=== PATIENT | female | born 1955 | race Caucasian/White ===

== ENCOUNTER 2024-08-05 07:46 | Day surgery (SDC) | payer OTHER, MEDICARE ==
[2024-07-31 12:42] VITALS: BMI 23.1
[2024-08-05] MEDS ORDERED: VANCOMYCIN 1,000 MG VIAL (RESTRICTED TO ID ONLY) ONE ×2 (08:02→09:49)
[2024-08-05] MEDS ORDERED: MIDAZOLAM HCL 2 MG/2 ML SINGLE DOSE VIAL ONE ×3 (08:06→10:54)
[2024-08-05] MEDS ORDERED: PROPOFOL 20 ML ONE ×3 (08:06→11:12)
[2024-08-05] MEDS ORDERED: BUPIVACAINE HCL/PF 0.5% (5 MG/ML) 30 ML VIAL IJ ONE (08:11)
[2024-08-05] MEDS ORDERED: ACETAMINOPHEN INJECTION 100 ML ONE (08:11)
[2024-08-05] MEDS ORDERED: BUPIVACAINE HCL/PF 0.5% (5MG/ML) 10 ML VIAL ONE (08:11)
[2024-08-05] MEDS ORDERED: DEXAMETHASONE SOD PHOSPHATE 10 MG/1 ML VIAL ONE (08:11)
[2024-08-05] MEDS ORDERED: ONDANSETRON 4 MG/2 ML VIAL IVPUSH PRN ×2 (08:15→11:19)
[2024-08-05] MEDS ORDERED: LACTATED RINGERS SOLUTION 1,000 ML IV SCH (08:15)
[2024-08-05] MEDS ORDERED: oxyCODONE HCL 5 MG TABLET PO PRN (08:15)
[2024-08-05] MEDS ORDERED: ceFAZolin SODIUM 1 GM VIAL ONE (09:49)
[2024-08-05] MEDS ORDERED: TRANEXAMIC ACID 1000 MG/10 ML VIAL ONE ×2 (09:49→10:10)
[2024-08-05] MEDS ORDERED: ONDANSETRON 4 MG/2 ML VIAL ONE (10:01)
[2024-08-05] MEDS ORDERED: DEXAMETHASONE SOD PHOSPHATE 4 MG/1 ML VIAL ONE (10:01)
[2024-08-05] MEDS ORDERED: BUPIVICAINE 0.25%/MORPH PF/KETOROLAC - 51ML DISP.SYRINGE IA ONE (10:56)
[2024-08-05] MEDS ORDERED: MAG HYDROX/AL HYDROX/SIMETH 30 ML UNIT-DOSE CUP PO PRN (11:19)
[2024-08-05] MEDS: LACTATED RINGERS SOLUTION 1,000 ML IV SCH (13:45)
[2024-08-05] MEDS: CEFAZOLIN 2 GM/D5W 2 GM/50 ML ML IVPB SCH (18:10)
[2024-08-05] MEDS: ACETAMINOPHEN 1000 MG/100 ML BAG IVPB PRN (18:11)
[2024-08-05] MEDS: oxyCODONE HCL 5 MG TABLET PO PRN (19:47)
[2024-08-05] MEDS: GABAPENTIN 300 MG CAPSULE PO SCH (21:57)
[2024-08-05] MEDS: SENNOSIDES/DOCUSATE COMBO (SENNA PLUS) TABLET (UD) PO SCH (21:57)
[2024-08-06 09:31] LABS: HEMATOCRIT 31.5 % (32.4-45.2); HEMOGLOBIN 10.5 G/dL (10.7-15.3); MCH 28.7 pg (25.7-33.7); MCHC 33.3 g/dl (32.0-36.0); MEAN PLT VOLUME 8.5 fl (7.5-11.1); PLATELET COUNT 421.4 10^3/uL (134-434); RBC 3.66 10^6/uL (3.60-5.2); RDW 13.9 % (11.6-15.6); WHITE BLOOD COUNT 10.3 10^3/uL (4.0-10.8)
[2024-08-06 09:49] LABS: CALCIUM 8.8 mg/dl (8.5-10.1); CREATININE 1.6 mg/dl (0.6-1.3); POTASSIUM 4.7 mmol/L (3.5-5.1)
[2024-08-06] MEDS: MULTIVITAMINS (DAILY MVI) TABLET (FP) PO SCH (10:35)
[2024-08-06] MEDS: ASPIRIN COATED 81 MG TABLET.EC PO SCH (10:35)
[2024-08-06] MEDS: PANTOPRAZOLE 40 MG TABLET PO SCH (10:35)
[2024-08-06] MEDS: FAMOTIDINE 20 MG TABLET PO SCH (11:15)
[2024-08-06] MEDS: SODIUM CHLORIDE 0.9% 250 ML INFUS.BAG IV ONE (11:19)
[2024-08-06 16:04] VITALS: BP 114/62; PULSE 81; RESP 19; TEMP 97.3
== END 2024-08-06 16:56 | disposition home or self-care (01) ==
LOC: SUATTDRO 07:46 → FASUSAT 07:46 → FM/S 13:15 → FASUSAT 08-06 16:56
PROC: 8E0Y0CZ Robotic Assisted Procedure of Lower Extremity, Open Approach (ICD-10-PCS; 2024-08-05)
PROC: 0SRD0JA Replacement of Left Knee Joint with Synthetic Substitute, Uncemented, Open Approach (ICD-10-PCS; principal; 2024-08-05 10:12)
DX: M17.12 Unilateral primary osteoarthritis, left knee (principal)
CPT/HCPCS: 20985; 27447; C1776; S2900; 36415; 73560-TC-LT-FY; 80048; 85027; 88305-TC; 88311-TC; 94760; 97010-GP; 97116-GP; 97162-GP; J0131; J1100

== ENCOUNTER 2024-08-08 17:14 | Inpatient (IN) | payer OTHER, MEDICARE ==
[2024-08-08 19:07] LABS: BASO % 0.6 % (0-2.0); EOS % 3.5 % (0-4.5); HEMATOCRIT 30.6 % (32.4-45.2); HEMOGLOBIN 10.1 GM/dL (10.7-15.3); MCH 27.7 pg (25.7-33.7); MCHC 33.1 g/dl (32.0-36.0); MEAN CELL VOLUME 83.5 fl (80-96); MEAN PLT VOLUME 7.8 fl (7.5-11.1); MONO % 7.1 % (3.8-10.2); NEUT % 77.8 % (42.8-82.8); PLATELET COUNT 400 10^3/uL (134-434); RBC 3.67 M/mm3 (3.60-5.2); RDW 13.9 % (11.6-15.6); WHITE BLOOD COUNT 14.5 K/mm3 (4.0-10.0)
[2024-08-08 19:48] LABS: POTASSIUM 3.9 mmol/L (3.5-5.1)
[2024-08-08 19:50] LABS: ALBUMIN 2.7 g/dl (3.4-5.0); BLOOD UREA NITROGEN 22.4 mg/dL (7-18); CALCIUM 9.1 mg/dL (8.5-10.1)
[2024-08-08 19:54] LABS: CREATININE 1.2 mg/dL (0.55-1.3)
[2024-08-08 19:55] LABS: BILIRUBIN,TOTAL 0.7 mg/dL (0.2-1); TOT PROT 6.8 g/dl (6.4-8.2)
[2024-08-08] MEDS ORDERED: oxyCODONE HCL 5 MG TABLET PO PRN (22:15)
[2024-08-09] MEDS: oxyCODONE HCL 5 MG TABLET PO PRN (00:53)
[2024-08-09 05:40] VITALS: BMI 23.8
[2024-08-09] MEDS ORDERED: oxyCODONE HCL 5 MG TABLET PO PRN (09:16)
[2024-08-09] MEDS: ACETAMINOPHEN 325 MG TABLET (FP) PO PRN (09:33)
[2024-08-09] MEDS: GABAPENTIN 300 MG CAPSULE PO SCH (09:33)
[2024-08-09] MEDS: FAMOTIDINE 20 MG TABLET PO SCH (09:33)
[2024-08-09] MEDS: ASPIRIN COATED 81 MG TABLET.EC PO SCH (09:33)
[2024-08-09 10:21] LABS: BASO % 0.5 % (0-2.0); EOS % 5.3 % (0-4.5); HEMATOCRIT 29.5 % (32.4-45.2); HEMOGLOBIN 9.9 GM/dL (10.7-15.3); LYMPH % 14.7 % (8-40); MCH 28.3 pg (25.7-33.7); MCHC 33.6 g/dl (32.0-36.0); MEAN CELL VOLUME 84.2 fl (80-96); MEAN PLT VOLUME 7.9 fl (7.5-11.1); MONO % 7.7 % (3.8-10.2); NEUT % 71.8 % (42.8-82.8); PLATELET COUNT 406 10^3/uL (134-434); RDW 13.8 % (11.6-15.6); WHITE BLOOD COUNT 10.9 K/mm3 (4.0-10.0)
[2024-08-09 10:36] LABS: POTASSIUM 3.8 mmol/L (3.5-5.1)
[2024-08-09 10:37] LABS: CALCIUM 8.5 mg/dL (8.5-10.1)
[2024-08-09 10:38] LABS: ALBUMIN 2.3 g/dl (3.4-5.0); BLOOD UREA NITROGEN 20.1 mg/dL (7-18); MAGNESIUM 1.6 mg/dL (1.8-2.4)
[2024-08-09 10:40] LABS: CREATININE 1.1 mg/dL (0.55-1.3); PHOSPHOROUS 3.6 mg/dL (2.5-4.9)
[2024-08-09 10:41] LABS: BILIRUBIN,TOTAL 0.7 mg/dL (0.2-1)
[2024-08-09] MEDS: MAGNESIUM OXIDE 400 MG TABLET (FP) PO ONE (12:03)
[2024-08-09] MEDS: DOCUSATE SODIUM 100 MG CAPSULE (FP) PO SCH (12:03)
[2024-08-09] MEDS: SODIUM CHLORIDE 1,000 ML IV SCH (12:03)
[2024-08-09] MEDS: MAGNESIUM SULF 50% (8.12 MEQ/2 ML-1 GM VIAL) IVPB ONE (12:08)
[2024-08-09 17:35] LABS: EPI CELLS 9 /uL (0-25.1); HYALINE CASTS 0 /uL (0-3.1); PH,URINE 5.5 (5.0-8.0); URINE APPEARANCE CLEAR; URINE BACTERIA 6 /uL (0-1359); URINE BILIRUBIN NEGATIVE (NEGATIVE); URINE COLOR YELLOW; URINE GLUCOSE (UA) NEGATIVE (NEGATIVE); URINE KETONE NEGATIVE (NEGATIVE); URINE LEUK ESTERASE TRACE (NEGATIVE); URINE NITRITE NEGATIVE (NEGATIVE); URINE PROTEIN 2+ (NEGATIVE); URINE RBC 26 /uL (0-23.9); URINE UROBILINOGEN 0.2 mg/dL (0.2-1.0); URINE WBC 103 /uL (0-25.8)
[2024-08-10 08:46] LABS: BASO % 0.7 % (0-2.0); EOS % 6.8 % (0-4.5); HEMOGLOBIN 9.7 GM/dL (10.7-15.3); LYMPH % 13.6 % (8-40); MCH 29.1 pg (25.7-33.7); MCHC 34.7 g/dl (32.0-36.0); MEAN CELL VOLUME 83.8 fl (80-96); MEAN PLT VOLUME 7.7 fl (7.5-11.1); MONO % 10.6 % (3.8-10.2); NEUT % 68.3 % (42.8-82.8); PLATELET COUNT 386 10^3/uL (134-434); RBC 3.34 M/mm3 (3.60-5.2); RDW 13.6 % (11.6-15.6); WHITE BLOOD COUNT 8.9 K/mm3 (4.0-10.0)
[2024-08-10 09:08] LABS: POTASSIUM 4.2 mmol/L (3.5-5.1)
[2024-08-10 09:22] LABS: CALCIUM 8.6 mg/dL (8.5-10.1)
[2024-08-10 09:23] LABS: ALBUMIN 2.2 g/dl (3.4-5.0); BLOOD UREA NITROGEN 22.5 mg/dL (7-18)
[2024-08-10 09:27] LABS: BILIRUBIN,TOTAL 0.9 mg/dL (0.2-1); CREATININE 1.1 mg/dL (0.55-1.3)
[2024-08-10] MEDS: POLYETHYLENE GLYCOL (HEALTHYLAX) 3350 17 GM PACKET PO ONE (14:24)
[2024-08-10 23:23] VITALS: RESP 18
[2024-08-12 09:20] VITALS: BP 106/73; PULSE 88; TEMP 98.2
== END 2024-08-12 11:40 | DRG 948 ==
LOC: JER 17:14 → JERBED 20:32 → J7W 08-09 00:32 → OBSVTOIN 08-09 15:07
PROVIDERS: ADMIT Internal Medicine
DX: G89.18 Other acute postprocedural pain (principal); Y83.9 Surgical procedure, unspecified as the cause of abnormal reaction of the patient, or of later complication, without mention of misadventure at the time of the procedure; D72.829 Elevated white blood cell count, unspecified; I95.9 Hypotension, unspecified; R60.0 Localized edema
CPT/HCPCS: 36415; 80053; 81003; 83540; 83550; 83735; 84100; 85025; 87086; 93005; 93010; 94010; 97116-GP; 97162-GP; 99285-25; G0378

== ENCOUNTER 2024-10-14 05:24 | Emergency (ER) | payer OTHER, MEDICARE ==
[2024-10-14 05:36] VITALS: BP 133/66; RESP 20; TEMP 97.9; BMI 23.5
[2024-10-14] MEDS ORDERED: MORPHINE SULFATE 2 MG/ML SYRINGE ONE (08:39)
[2024-10-14] MEDS: morphine CARPU-JECT 2 MG/1 ML DISP.SYRIN IVPUSH ONE (09:35)
[2024-10-14 10:01] LABS: INR 1.03 (0.83-1.09); PROTHROMBIN TIME (PATIENT) 11.2 SEC (9.7-13.0)
[2024-10-14 10:04] LABS: ACTIVATED PTT 23.7 SECONDS (25.2-36.5)
[2024-10-14 10:05] LABS: BASO % 0.8 % (0-2.0); EOS % 3.9 % (0-4.5); HEMATOCRIT 32.4 % (32.4-45.2); HEMOGLOBIN 10.2 GM/dL (10.7-15.3); LYMPH % 20.3 % (8-40); MCH 26.1 pg (25.7-33.7); MCHC 31.6 g/dl (32.0-36.0); MEAN CELL VOLUME 82.6 fl (80-96); MEAN PLT VOLUME 8.4 fl (7.5-11.1); MONO % 9.4 % (3.8-10.2); NEUT % 65.6 % (42.8-82.8); PLATELET COUNT 329 10^3/uL (134-434); RBC 3.92 M/mm3 (3.60-5.2); RDW 15.3 % (11.6-15.6); WHITE BLOOD COUNT 8.3 K/mm3 (4.0-10.0)
[2024-10-14 10:19] LABS: POTASSIUM 4.7 mmol/L (3.5-5.1)
[2024-10-14 10:22] LABS: ALBUMIN 3.3 g/dl (3.4-5.0); BLOOD UREA NITROGEN 47.7 mg/dL (7-18); CALCIUM 9.1 mg/dL (8.5-10.1)
[2024-10-14 10:26] LABS: CREATININE 1.4 mg/dL (0.55-1.3)
[2024-10-14 10:27] LABS: BILIRUBIN,TOTAL 0.6 mg/dL (0.2-1); TOT PROT 7.5 g/dl (6.4-8.2)
[2024-10-14 11:25] VITALS: PULSE 79
== END 2024-10-14 12:42 | disposition home or self-care (01) ==
LOC: JER 05:24
PROC: 3E033NZ Introduction of Analgesics, Hypnotics, Sedatives into Peripheral Vein, Percutaneous Approach (ICD-10-PCS; principal; 2024-10-14)
DX: R10.32 Left lower quadrant pain (principal); M25.552 Pain in left hip; M79.89 Other specified soft tissue disorders; R60.0 Localized edema; W01.198A Fall on same level from slipping, tripping and stumbling with subsequent striking against other object, initial encounter
CPT/HCPCS: 36415; 72192-TC; 73700-TC-RT; 80053; 80307; 85025; 85610; 85730; 86850; 86900; 86901; 93971-TC; 96374; 99285-25

== ENCOUNTER 2025-03-17 02:25 | Inpatient (IN) | payer OTHER, MEDICARE ==
[2025-03-17 02:43] VITALS: BMI 23.5
[2025-03-17 04:47] LABS: ABSOLUTE IMMATURE GRANULOCYTES 0.03 x10^3/uL (0.0-0.031); BASOPHILS # 0.10 x10^3/uL (0.01-0.08); EOSINOPHIL % 3.8 % (0.7-5.8); EOSINOPHILS # 0.32 x10^3/uL (0.04-0.36); MCHC 29.8 g/dl (32.2-35.5); MEAN CELL VOLUME 78.6 fl (79.4-94.8); MEAN PLT VOLUME 9.6 fl (9.4-12.3); MONOCYTE # 0.76 x10^3/uL (0.24-0.86); MONOCYTE % 8.9 % (4.7-12.5); RDW 15.3 % (12.4-16.4)
[2025-03-17 05:11] LABS: CO2 24.0 mmol/L (21-32); GLUCOSE,RANDOM 99.0 mg/dL (74-106)
[2025-03-17 05:13] LABS: CREATININE 1.7 mg/dL (0.55-1.3); SGOT/AST 21.0 U/L (15-37); SGPT/ALT 23.0 U/L (13-61)
[2025-03-17 05:16] LABS: TOT PROT 8.0 g/dl (6.4-8.2)
[2025-03-17 05:17] LABS: ALK PHOS 132.0 U/L (45-117)
[2025-03-17 05:20] LABS: INR 1.12 (0.83-1.09); PROTHROMBIN TIME (PATIENT) 12.2 SEC (9.7-13.0)
[2025-03-17 05:23] LABS: ACTIVATED PTT 28.7 SECONDS (25.2-36.5)
[2025-03-17] MEDS ORDERED: MORPHINE SULFATE 2 MG/ML SYRINGE ONE ×2 (05:30→06:05)
[2025-03-17] MEDS: SODIUM CHLORIDE 0.9% 500 ML INFUS.BAG IV ONE (05:39)
[2025-03-17 06:03] LABS: HCV DIAGNOSTIC IN-HOUSE W/RFLX NON-REACTIVE (NONREACTIVE)
[2025-03-17] MEDS ORDERED: VANCOMYCIN 1 GRAM (PRE-DOCKED) 1,000 MG/250 ML BAG IVPB ONE (06:06)
[2025-03-17] MEDS: morphine CARPU-JECT 2 MG/1 ML DISP.SYRIN IVPUSH ONE (06:17)
[2025-03-17] MEDS: VANCOMYCIN 1 GM PREMIX (F) 1 GM/200 ML BAG IVPB ONE (06:18)
[2025-03-17 09:09] LABS: ERYTHROCYTE SEDIMENTATION RATE 114 mm/hr (0-30)
[2025-03-17] MEDS: SODIUM CHLORIDE 1,000 ML IV SCH (09:30)
[2025-03-17] MEDS: morphine CARPU-JECT 2 MG/1 ML DISP.SYRIN IVPUSH PRN (11:29)
[2025-03-17] MEDS: HEPARIN NA (PORCINE) 5,000 UNITS/ML 1ML VIAL SQ SCH (14:49)
[2025-03-17] MEDS: COLLAGENASE CLOSTRIDIUM HIST. 30 GRAMS TUBE TP SCH (20:00)
[2025-03-17] MEDS: PIPERACILLIN/TAZOB 3.375 GM 3.375 GM in DEXTROSE 5%-WATER - 50 ML IVPB SCH (21:35)
[2025-03-17] MEDS: ACETAMINOPHEN 325 MG TABLET (FP) PO PRN (21:39)
[2025-03-17] MEDS: VANCOMYCIN/WATER FOR INJ (PEG) 1,000 MG/200 ML BAG IVPB ONE (21:42)
[2025-03-17 22:37] LABS: HIV INTERPRETATION NEGATIVE (NEGATIVE)
[2025-03-18] MEDS ORDERED: VANCOMYCIN 1,000 MG in DEXTROSE 5%-WATER - 250 ML IVPB SCH (06:00)
[2025-03-18 08:35] LABS: ABSOLUTE IMMATURE GRANULOCYTES 0.02 x10^3/uL (0.0-0.031); BASOPHILS # 0.13 x10^3/uL (0.01-0.08); EOSINOPHIL % 8.7 % (0.7-5.8); EOSINOPHILS # 0.74 x10^3/uL (0.04-0.36); MCHC 30.0 g/dl (32.2-35.5); MEAN CELL VOLUME 77.5 fl (79.4-94.8); MEAN PLT VOLUME 9.1 fl (9.4-12.3); MONOCYTE # 0.67 x10^3/uL (0.24-0.86); MONOCYTE % 7.9 % (4.7-12.5); RDW 15.3 % (12.4-16.4)
[2025-03-18 08:58] LABS: GLUCOSE,RANDOM 85.0 mg/dL (74-106)
[2025-03-18 09:01] LABS: CREATININE 1.2 mg/dL (0.55-1.3); SGOT/AST 21.0 U/L (15-37); SGPT/ALT 22.0 U/L (13-61)
[2025-03-18 09:03] LABS: ALK PHOS 129.0 U/L (45-117); TOT PROT 7.3 g/dl (6.4-8.2)
[2025-03-18 09:44] LABS: CO2 20.0 mmol/L (21-32)
[2025-03-18] MEDS ORDERED: VANCOMYCIN/WATER FOR INJ (PEG) 1,000 MG/200 ML BAG IVPB SCH (10:00)
[2025-03-18] MEDS: morphine CARPU-JECT 2 MG/1 ML DISP.SYRIN IVPUSH ONE (10:48)
[2025-03-18] MEDS: MULTIVITAMINS (DAILY MVI) TABLET (FP) PO SCH (11:04)
[2025-03-18] MEDS: LACTOBACILLUS ACIDOPHILUS 1 TABLET PO SCH (11:48)
[2025-03-18] MEDS: AMINO ACIDS/PROTEIN HYDROLYS 30 ML LIQUID.PKT PO SCH (16:46)
[2025-03-18] MEDS: morphine CARPU-JECT 2 MG/1 ML DISP.SYRIN IVPUSH PRN (16:46)
[2025-03-19 17:38] LABS: ABSOLUTE IMMATURE GRANULOCYTES 0.01 x10^3/uL (0.0-0.031); BASOPHILS # 0.09 x10^3/uL (0.01-0.08); EOSINOPHIL % 5.1 % (0.7-5.8); EOSINOPHILS # 0.39 x10^3/uL (0.04-0.36); MCHC 30.3 g/dl (32.2-35.5); MEAN CELL VOLUME 77.3 fl (79.4-94.8); MEAN PLT VOLUME 8.8 fl (9.4-12.3); MONOCYTE # 0.81 x10^3/uL (0.24-0.86); MONOCYTE % 10.6 % (4.7-12.5); RDW 15.4 % (12.4-16.4)
[2025-03-19] MEDS: VANCOMYCIN/WATER FOR INJ (PEG) 1,000 MG/200 ML BAG IVPB ONE (18:23)
[2025-03-19 18:25] LABS: CO2 23.0 mmol/L (21-32); GLUCOSE,RANDOM 103.0 mg/dL (74-106)
[2025-03-19 18:29] LABS: CREATININE 1.3 mg/dL (0.55-1.3); SGOT/AST 14.0 U/L (15-37); SGPT/ALT 19.0 U/L (13-61)
[2025-03-19 18:30] LABS: TOT PROT 7.2 g/dl (6.4-8.2)
[2025-03-19 18:32] LABS: ALK PHOS 131.0 U/L (45-117)
[2025-03-20 08:48] LABS: ABSOLUTE IMMATURE GRANULOCYTES 0.04 x10^3/uL (0.0-0.031); BASOPHILS # 0.13 x10^3/uL (0.01-0.08); EOSINOPHIL % 4.2 % (0.7-5.8); EOSINOPHILS # 0.37 x10^3/uL (0.04-0.36); MCHC 30.1 g/dl (32.2-35.5); MEAN CELL VOLUME 77.4 fl (79.4-94.8); MEAN PLT VOLUME 9.3 fl (9.4-12.3); MONOCYTE # 0.80 x10^3/uL (0.24-0.86); MONOCYTE % 9.1 % (4.7-12.5); RDW 15.4 % (12.4-16.4)
[2025-03-20 09:56] LABS: CO2 21.0 mmol/L (21-32); GLUCOSE,RANDOM 92.0 mg/dL (74-106)
[2025-03-20 09:59] LABS: CREATININE 1.1 mg/dL (0.55-1.3); SGOT/AST 19.0 U/L (15-37); SGPT/ALT 22.0 U/L (13-61)
[2025-03-20 10:00] LABS: TOT PROT 7.6 g/dl (6.4-8.2)
[2025-03-20 10:06] LABS: ALK PHOS 136.0 U/L (45-117)
[2025-03-20] MEDS: MAGNESIUM OXIDE 400 MG TABLET (FP) PO ONE (10:37)
[2025-03-21] MEDS: morphine CARPU-JECT 2 MG/1 ML DISP.SYRIN IVPUSH PRN (01:20)
[2025-03-21 07:29] LABS: ABSOLUTE IMMATURE GRANULOCYTES 0.05 x10^3/uL (0.0-0.031); BASOPHILS # 0.10 x10^3/uL (0.01-0.08); EOSINOPHIL % 3.4 % (0.7-5.8); EOSINOPHILS # 0.36 x10^3/uL (0.04-0.36); MCHC 29.6 g/dl (32.2-35.5); MEAN CELL VOLUME 77.7 fl (79.4-94.8); MEAN PLT VOLUME 9.0 fl (9.4-12.3); MONOCYTE # 0.86 x10^3/uL (0.24-0.86); MONOCYTE % 8.1 % (4.7-12.5); RDW 15.4 % (12.4-16.4)
[2025-03-21 08:22] LABS: CO2 23.0 mmol/L (21-32)
[2025-03-21 08:23] LABS: GLUCOSE,RANDOM 92.0 mg/dL (74-106)
[2025-03-21 08:25] LABS: CREATININE 1.2 mg/dL (0.55-1.3); SGPT/ALT 25.0 U/L (13-61)
[2025-03-21 08:26] LABS: SGOT/AST 21.0 U/L (15-37)
[2025-03-21 08:27] LABS: TOT PROT 8.0 g/dl (6.4-8.2)
[2025-03-21 08:28] LABS: ALK PHOS 147.0 U/L (45-117)
[2025-03-21 11:19] VITALS: BP 102/64; PULSE 83; RESP 17; TEMP 97.9
== END 2025-03-21 15:54 | disposition home or self-care (01) | DRG 603 ==
LOC: JER 02:25 → JERBED 05:52 → J8W 09:08
PROVIDERS: ADMIT Student in an Organized Health Care Education/Training Program; ATTEND Nurse Practitioner Family
DX: L03.116 Cellulitis of left lower limb (principal); L97.929 Non-pressure chronic ulcer of unspecified part of left lower leg with unspecified severity; N17.9 Acute kidney failure, unspecified; K21.9 Gastro-esophageal reflux disease without esophagitis; F32.A Depression, unspecified; I73.9 Peripheral vascular disease, unspecified; L03.115 Cellulitis of right lower limb
CPT/HCPCS: 36415; 73590-TC-LT-FY; 80053; 83036; 83735; 84100; 85025; 85610; 85651; 85730; 86140; 86803; 86850; 86900; 86901; 87070; 87081; 87205; 87389; 93005; 93010; 93926-TC; 99285-25; G0480

== ENCOUNTER 2025-06-14 02:38 | Inpatient (IN) | payer OTHER, MEDICARE ==
[2025-06-14] MEDS ORDERED: ACETAMINOPHEN INJECTION 100 ML ONE (03:08)
[2025-06-14] MEDS: ACETAMINOPHEN 1000 MG/100 ML BAG IVPB ONE (03:26)
[2025-06-14] MEDS ORDERED: CEFEPIME HCL/D5W 1 GM/50 ML BAG IVPB ONE (03:41)
[2025-06-14 03:44] LABS: ABSOLUTE IMMATURE GRANULOCYTES 0.06 x10^3/uL (0.0-0.031); BASOPHILS # 0.10 x10^3/uL (0.01-0.08); EOSINOPHIL % 1.1 % (0.7-5.8); EOSINOPHILS # 0.17 x10^3/uL (0.04-0.36); MCHC 29.9 g/dl (32.2-35.5); MEAN CELL VOLUME 76.6 fl (79.4-94.8); MEAN PLT VOLUME 8.9 fl (9.4-12.3); MONOCYTE # 1.38 x10^3/uL (0.24-0.86); MONOCYTE % 8.7 % (4.7-12.5); RDW 16.7 % (12.4-16.4)
[2025-06-14 03:55] LABS: INR 1.27 (0.83-1.09); PROTHROMBIN TIME (PATIENT) 13.8 SEC (9.7-13.0)
[2025-06-14 03:58] LABS: ACTIVATED PTT 28.0 SECONDS (25.2-36.5)
[2025-06-14 04:02] LABS: GLUCOSE,RANDOM 140.0 mg/dL (74-106)
[2025-06-14 04:03] LABS: TOT PROT 7.5 g/dl (6.4-8.2)
[2025-06-14 04:04] LABS: CO2 21.0 mmol/L (21-32)
[2025-06-14 04:05] LABS: ALK PHOS 99.0 U/L (40-150)
[2025-06-14 04:08] LABS: CREATININE 2.13 mg/dL (0.55-1.3); SGOT/AST 17.0 U/L (5-34); SGPT/ALT 6.0 U/L (0-55)
[2025-06-14] MEDS ORDERED: ONDANSETRON 4 MG/2 ML VIAL ONE (04:16)
[2025-06-14] MEDS: CEFEPIME HCL 1 GM VIAL (RESTRICTED TO ID) IVPB ONE (04:27)
[2025-06-14] MEDS: ONDANSETRON 4 MG/2 ML VIAL IVPUSH ONE (04:27)
[2025-06-14 04:28] LABS: HCV DIAGNOSTIC IN-HOUSE W/RFLX NON-REACTIVE (NONREACTIVE)
[2025-06-14 04:29] LABS: HIV INTERPRETATION NEGATIVE (NEGATIVE)
[2025-06-14 05:04] LABS: ERYTHROCYTE SEDIMENTATION RATE 123 mm/hr (0-30)
[2025-06-14] MEDS ORDERED: LINEZOLID 600 MG PREMIX BAG 600 MG/300 ML BAG IVPB ONE (05:30)
[2025-06-14] MEDS ORDERED: ACETAMINOPHEN 1000 MG/100 ML BAG IVPB PRN (06:04)
[2025-06-14] MEDS ORDERED: PATIENT'S OWN MEDICATION (NON-FORMULARY) (Omeprazole [Omeprazole] 20 MG Tablet.Dr) PO SCH (06:15)
[2025-06-14] MEDS: SODIUM CHLORIDE 1,000 ML IV SCH (06:32)
[2025-06-14] MEDS: LINEZOLID 600 MG PREMIX BAG 600 MG in PREMIX 300 IVPB ONE (06:33)
[2025-06-14] MEDS: HEPARIN NA (PORCINE) 5,000 UNITS/ML 1ML VIAL SQ SCH (06:34)
[2025-06-14] MEDS: LINEZOLID 600 MG PREMIX BAG 600 MG in PREMIX 300 IVPB SCH (06:50)
[2025-06-14] MEDS: AMINO ACIDS/PROTEIN HYDROLYS 30 ML LIQUID.PKT PO SCH (08:41)
[2025-06-14 08:44] LABS: IRON SERUM 12 ug/dL (50-175)
[2025-06-14] MEDS: ACETAMINOPHEN 1000 MG/100 ML BAG IVPB SCH ×2 (08:47→14:19)
[2025-06-14] MEDS ORDERED: CEFEPIME HCL 1 GM VIAL (RESTRICTED TO ID) IVPB SCH (10:00)
[2025-06-14] MEDS ORDERED: CEFEPIME 1 GM in DEXTROSE 5%-WATER 100 ML IVPB SCH (10:00)
[2025-06-14] MEDS: MULTIVITAMINS (DAILY MVI) TABLET (FP) PO SCH (10:23)
[2025-06-14 11:46] VITALS: BMI 23.6
[2025-06-14] MEDS: MINERAL OIL/PET HY-PHL TOPICAL OINTMENT 454 GM JAR TP SCH (17:14)
[2025-06-14] MEDS: LACTOBACILLUS ACIDOPHILUS 1 TABLET PO SCH (18:21)
[2025-06-14] MEDS ORDERED: LINEZOLID 600 MG PREMIX BAG 600 MG/300 ML BAG IVPB SCH (22:00)
[2025-06-15] MEDS: CEFEPIME HCL/D5W 1 GM/50 ML BAG IVPB SCH (05:33)
[2025-06-15] MEDS ORDERED: CEFEPIME 1 GM in DEXTROSE 5%-WATER 100 ML IVPB SCH (06:00)
[2025-06-15 08:56] LABS: ABSOLUTE IMMATURE GRANULOCYTES 0.05 x10^3/uL (0.0-0.031); BASOPHILS # 0.08 x10^3/uL (0.01-0.08); EOSINOPHIL % 4.7 % (0.7-5.8); EOSINOPHILS # 0.48 x10^3/uL (0.04-0.36); MCHC 27.9 g/dl (32.2-35.5); MEAN CELL VOLUME 79.9 fl (79.4-94.8); MEAN PLT VOLUME 8.7 fl (9.4-12.3); MONOCYTE # 0.84 x10^3/uL (0.24-0.86); MONOCYTE % 8.3 % (4.7-12.5); RDW 16.8 % (12.4-16.4)
[2025-06-15 09:40] LABS: GLUCOSE,RANDOM 101 mg/dL (74-106)
[2025-06-15 09:41] LABS: TOT PROT 6.4 g/dl (6.4-8.2)
[2025-06-15 09:42] LABS: CO2 23 mmol/L (21-32)
[2025-06-15 09:43] LABS: ALK PHOS 114 U/L (40-150)
[2025-06-15 09:46] LABS: SGOT/AST 14 U/L (5-34); SGPT/ALT < 6 U/L (0-55)
[2025-06-15 09:47] LABS: CREATININE 1.64 mg/dL (0.55-1.3)
[2025-06-16 08:09] LABS: MCHC 28.5 g/dl (32.2-35.5); MEAN CELL VOLUME 78.5 fl (79.4-94.8); MEAN PLT VOLUME 8.8 fl (9.4-12.3); RDW 16.7 % (12.4-16.4)
[2025-06-16 08:42] LABS: GLUCOSE,RANDOM 89 mg/dL (74-106)
[2025-06-16 08:43] LABS: TOT PROT 6.3 g/dl (6.4-8.2)
[2025-06-16 08:44] LABS: CO2 21 mmol/L (21-32)
[2025-06-16 08:45] LABS: ALK PHOS 125 U/L (40-150)
[2025-06-16 08:48] LABS: CREATININE 1.16 mg/dL (0.55-1.3); SGOT/AST 13 U/L (5-34); SGPT/ALT < 6 U/L (0-55)
[2025-06-16 20:42] LABS: URINE APPEARANCE CLEAR; URINE BILIRUBIN NEGATIVE (NEGATIVE); URINE COLOR YELLOW; URINE GLUCOSE (UA) NEGATIVE (NEGATIVE); URINE KETONE NEGATIVE (NEGATIVE)
[2025-06-16 20:43] LABS: URINE LEUK ESTERASE NEGATIVE (NEGATIVE); URINE NITRITE NEGATIVE (NEGATIVE); URINE PROTEIN 2+ (NEGATIVE); URINE UROBILINOGEN 0.2 mg/dL (0.2-1.0)
[2025-06-16] MEDS ORDERED: LINEZOLID 600 MG PREMIX BAG 600 MG/300 ML BAG IVPB SCH (22:00)
[2025-06-17 08:51] VITALS: RESP 18
[2025-06-17] MEDS: PANTOPRAZOLE 20 MG TABLET PO SCH (13:11)
[2025-06-18] MEDS: GABAPENTIN 300 MG CAPSULE PO ONE ×2 (08:52→21:18)
[2025-06-18] MEDS ORDERED: GABAPENTIN 300 MG CAPSULE PO SCH (10:00)
[2025-06-18] MEDS: GABAPENTIN 100 MG CAPSULE PO ONE (14:52)
[2025-06-19 08:56] VITALS: BP 126/76; PULSE 84; TEMP 98.8
== END 2025-06-19 11:15 | disposition home or self-care (01) | DRG 300 ==
LOC: JER 02:38 → JERBED 04:54 → J5S 06:15
PROVIDERS: ADMIT Student in an Organized Health Care Education/Training Program; ATTEND Internal Medicine
DX: I83.029 Varicose veins of left lower extremity with ulcer of unspecified site (principal); L03.116 Cellulitis of left lower limb; N17.9 Acute kidney failure, unspecified; L97.928 Non-pressure chronic ulcer of unspecified part of left lower leg with other specified severity; E87.5 Hyperkalemia; F32.A Depression, unspecified; R80.9 Proteinuria, unspecified; K21.9 Gastro-esophageal reflux disease without esophagitis; D72.829 Elevated white blood cell count, unspecified; Z96.652 Presence of left artificial knee joint; Z96.642 Presence of left artificial hip joint; D64.9 Anemia, unspecified; N18.9 Chronic kidney disease, unspecified
CPT/HCPCS: 36415; 73590-TC-LT-FY; 73718-TC-LT; 76775-TC; 80053; 81003; 82550; 82728; 83540; 83550; 83735; 84100; 85025; 85027; 85610; 85651; 85730; 86140; 86803; 86850; 86900; 86901; 87040; 87070; 87205; 87389; 99285-25; J0878